=== PATIENT | female | born 1980 | race Caucasian/White ===

== ENCOUNTER 2019-06-07 15:17 | Emergency (ER) | payer OTHER ==
[~2019-06-07] VITALS: Ht 165.1 cm; Wt 83.9 kg
--- NOTE | 2019-06-07 15:24 | NUR ---
CAME IN FOR LOWER BACK PAIN x YESTERDAY WHILE TRYING TO TAKE BABY FROM [employer], UNABLE TO STAND UP THIS MORNING. TO ER BED 9, HOOKED TO MONITOR, AWAITING MD OAEKS.
--- NOTE | 2019-06-07 15:37 | NUR ---
DR ERICKSON AT BEDSIDE
[2019-06-07 15:51] VITALS: BP 113/71
--- NOTE | 2019-06-07 15:51 | NUR ---
Patient discharged to home in stable condition. Written and verbal after care instructions given. Patient verbalizes understanding of instruction.
== END 2019-06-07 15:51 | disposition home or self-care (01) ==
LOC: ER 15:21
DX: S39.012A Strain of muscle, fascia and tendon of lower back, initial encounter (principal); X58.XXXA Exposure to other specified factors, initial encounter; Y93.89 Activity, other specified; Y92.89 Other specified places as the place of occurrence of the external cause; Y99.8 Other external cause status